=== PATIENT | female | born 1965 | race Caucasian/White ===

== ENCOUNTER 2023-10-10 20:38 | Emergency (ER) | payer BC, SELFPAY ==
[2023-10-10] VITALS (22 sets, daily range): BP systolic 113–156; BP diastolic 58–92; PULSE 62–82; RESP 20; TEMP 36.4; O2SAT 90–98; BMI 30.7
--- NOTE | 2023-10-10 20:41 | ED.GENADULT ---
HPI - General Adult General Date Seen: 10/10/23 Chief complaint: Chest Pain Stated complaint: Diff breathing, chest pain/tightness Time Seen by Provider: 10/10/23 20:41 History of Present Illness HPI narrative: This is a 58-year-old female with a history of hypothyroidism, Christine's disease, vitamin-D deficiency, esophagitis, GERD, history of GI bleeding, migraine headaches, anxiety/depression, history of epiglottitis treated in the hospital in 2019 at [facility] [place]. She presents to the ER today with her life partner for evaluation of chest pain. She has actually had symptoms dating back a couple of days where she just has not been feeling right. She has been having trouble concentrating. No other definite symptoms with that. No fever. No headache. No nausea or vomiting. No diarrhea. No trouble breathing. No chest pain. 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 She has been having trouble focusing at work. She denies any specific stress or new life problem. She and her partner are currently camping in a camper because they just wanted to get out of the city for a couple of weeks. That is not a source of stress for her She went for a walk this evening after she got off work because she just wanted to see if she could feel better. After getting home from the walk she was just very fatigued and had to go lay down. While she was laying down, beginning at roughly around 7 PN she began to have some substernal chest discomfort that is below her left breast. It feels like a pressure or squeezing. It does not really radiate although it may have gone up her left arm briefly. It is not ripping or tearing. It is not painful to breathe. She does feel like she is but short of breath. No abdominal pain. No nausea. No palpitations. No swelling in her legs. No recent travel. Past medical history includes hypothyroidism, currently on levothyroxine. She has a history of GERD and is currently on pantoprazole. She has a distant history of epiglottitis but this symptoms are not like that. She also recalls that she had a heart catheterization in 2012 done in the [facility] system. She does not remember what that catheterization showed but she did not have any stents and as far she can recall she did not have any significant coronary disease. She did have an allergic reaction to the heart catheterization dye. Related Data Allergies Allergy/AdvReac Type Severity Reaction Status Date / Time ibuprofen Allergy Unknown Verified 10/10/23 20:44 [facility] Social History Smoking Status: Never smoker How often do you have a drink containing alcohol: 2-4 times a month AUDIT-C Alcohol total score: 2 Non-prescribed substance use: denies use Exam Narrative: Exam Narrative: Constitutional: Appears well-developed and well-nourished. Alert. Conversant. Non toxic. HENT: Head: Atraumatic. Nose: Nose normal. Mouth/Throat: Oral mucosa is clear and moist. no trismus. Pharynx normal. Tonsils symmetric. No tonsillar enlargement, erythema, or exudate. Eyes: Conjunctivae normal. EOM normal. Pupils equal, round, and reactive to light. No scleral icterus. Neck: Normal range of motion. Neck supple. No tracheal deviation present. No JVD Cardiovascular: Normal rate, regular rhythm. No gallop. No friction rub. No murmur heard. Symmetric radial and PT artery pulses Pulmonary/Chest: Effort normal. No stridor. No respiratory distress. No wheezes. No rales. No rhonchi . No tenderness. Abdominal: Soft. Bowel sounds normal. No distension. No mass. No tenderness. No rebound. No guarding. No CVA tenderness Musculoskeletal: RUE: Normal range of motion. No tenderness. No deformity LUE: Normal range of motion. No tenderness. No deformity RLE: Normal range of motion. No edema. No tenderness. No deformity LLE: Normal range of motion. No edema. No tenderness. No deformity Lymph: No cervical adenopathy. Neurological: Alert and oriented to person, place, and time. Normal strength. CN II-VII intact. No sensory deficit. GCS eye subscore is 4. GCS verbal subscore is 5. GCS motor subscore is 6. Normal coordination Skin: Skin is warm and dry. No rash noted. No pallor. Normal capillary refill. Psychiatric: Normal mood. Appears somewhat anxious. Breathing deeply with long slow deep breaths.. Const: Vital Signs, click to edit/add: Vital Signs - 24 hr 10/10/23 20:44 10/10/23 21:03 10/10/23 21:04 Temperature 97.5 F L Pulse Rate 69 64 Pulse Rate [Right Pulse Oximeter] 75 Respiratory Rate 20 Blood Pressure 144/92 H Blood Pressure [Le ft Upper Arm] 156/69 H Pulse Oximetry 98 96 98 Oxygen Delivery Me thod Room Air 10/10/23 21:23 10/10/23 21:30 10/10/23 21:32 Temperature Pulse Rate 64 67 82 Pulse Rate [Right Pulse Oximeter] Respiratory Rate Blood Pressure 125/89 Blood Pressure [Le ft Upper Arm] Pulse Oximetry 96 95 94 Oxygen Delivery Me thod 10/10/23 21:45 10/10/23 22:00 10/10/23 22:02 Temperature Pulse Rate 70 75 69 Pulse Rate [Right Pulse Oximeter] Respiratory Rate Blood Pressure 113/58 L Blood Pressure [Le ft Upper Arm] Pulse Oximetry 97 96 97 Oxygen Delivery Me thod 10/10/23 22:15 10/10/23 22:30 10/10/23 22:31 Temperature Pulse Rate 77 78 72 Pulse Rate [Right Pulse Oximeter] Respiratory Rate Blood Pressure 141/78 H Blood Pressure [Le ft Upper Arm] Pulse Oximetry 94 96 96 Oxygen Delivery Me thod 10/10/23 22:32 10/10/23 22:33 10/10/23 22:45 Temperature Pulse Rate 62 71 74 Pulse Rate [Right Pulse Oximeter] Respiratory Rate Blood Pressure 125/84 122/80 Blood Pressure [Le ft Upper Arm] Pulse Oximetry 95 97 97 Oxygen Delivery Me thod 10/10/23 22:46 10/10/23 22:55 10/10/23 23:00 Temperature Pulse Rate 72 65 73 Pulse Rate [Right Pulse Oximeter] Respiratory Rate Blood Pressure 124/76 Blood Pressure [Le ft Upper Arm] Pulse Oximetry 97 95 94 Oxygen Delivery Me thod 10/10/23 23:02 10/10/23 23:15 10/10/23 23:30 Temperature Pulse Rate 72 70 71 Pulse Rate [Right Pulse Oximeter] Respiratory Rate Blood Pressure 116/73 Blood Pressure [Le ft Upper Arm] Pulse Oximetry 92 Oxygen Delivery Me thod 10/10/23 23:45 10/11/23 00:00 10/11/23 00:02 Temperature Pulse Rate 71 70 72 Pulse Rate [Right Pulse Oximeter] Respiratory Rate Blood Pressure 111/66 Blood Pressure [Le ft Upper Arm] Pulse Oximetry 90 90 92 Oxygen Delivery Me thod 10/11/23 00:02 10/11/23 00:02 10/11/23 00:15 Temperature Pulse Rate 72 72 70 Pulse Rate [Right Pulse Oximeter] Respiratory Rate Blood Pressure 111/66 111/66 Blood Pressure [Le ft Upper Arm] Pulse Oximetry 92 92 97 Oxygen Delivery Me thod 10/11/23 00:30 10/11/23 00:32 10/11/23 00:45 Temperature Pulse Rate 57 L 65 61 Pulse Rate [Right Pulse Oximeter] Respiratory Rate Blood Pressure 107/58 L Blood Pressure [Le ft Upper Arm] Pulse Oximetry 91 92 91 Oxygen Delivery Me thod 10/11/23 01:00 10/11/23 01:02 Temperature Pulse Rate 62 56 L Pulse Rate [Right Pulse Oximeter] Respiratory Rate Blood Pressure 117/72 Blood Pressure [Le ft Upper Arm] Pulse Oximetry 93 97 Oxygen Delivery Me thod Course Course ED Course: Recheck-temporary response to GI cocktail but chest pain came back. With concern for possible ischemia rather than esophageal spasm we did administer sublingual nitro. She had temporary relief of chest pain after sublingual nitro but then it recurred. We administered a total of 3 doses with only temporary partial relief. We then administered Ativan since there was some component of anxiety. With this, chest pain resolved. She was much more relaxed. Reevaluation(s) Reevaluation #1: Recheck-1:00 a.m.. Patient continues do well. No recurrent chest pain. More alert after Ativan wearing off. She in turn her family member are requesting discharge. I think that is reasonable. Vital Signs Vital signs: Initial Vital Signs Temperature 97.5 F L 10/10/23 20:44 Temperature Source Temporal Artery Scan 10/10/23 20:44 Pulse Rate 75 10/10/23 20:44 Pulse Rhythm Regular 10/10/23 20:44 Respiratory Rate 20 10/10/23 20:44 Blood Pressure 156/69 H 10/10/23 20:44 Blood Pressure Mean 98 10/10/23 20:44 Blood Pressure Position Sitting 10/10/23 20:44 Pulse Oximetry 98 10/10/23 20:44 Oxygen Delivery Method Room Air 10/10/23 20:44 Vital Signs Temperature 97.5 F L 10/10/23 20:44 Pulse Rate 75 10/10/23 20:44 Respiratory Rate 20 10/10/23 20:44 Blood Pressure 156/69 H 10/10/23 20:44 Pulse Oximetry 98 10/10/23 20:44 Oxygen Delivery Method Room Air 10/10/23 20:44 Temperature 97.5 F L 10/10/23 20:44 Pulse Rate 56 L 10/11/23 01:02 Respiratory Rate 20 10/10/23 20:44 Blood Pressure 117/72 10/11/23 01:02 Pulse Oximetry 97 10/11/23 01:02 Oxygen Delivery Method Room Air 10/10/23 20:44 Medications Administered Medications: Discontinued Medications Generic Name Dose Route Start Last Admin Trade Name Freq PRN Reason Stop Dose Admin Aspirin 162 mg 10/10/23 22:30 10/10/23 21:36 Aspirin 81 Mg Tab.Chew PO 10/10/23 22:31 162 mg ONCE ONE Administration Lidocaine/Aluminum/Magnesium/Simeth 30 ml 10/10/23 22:30 10/10/23 21:36 Gi Cocktail (Visc Lido/Antacid) 30 Ml PO 10/10/23 22:31 30 ml ONCE ONE Administration Lorazepam 1 mg 10/10/23 22:24 10/10/23 22:53 Lorazepam 2 Mg/Ml Inj IVP 10/10/23 22:25 1 mg ONCE ONE Administration Nitroglycerin 0.4 mg 10/10/23 22:24 10/10/23 22:53 Nitroglycerin 0.4 Mg Tab.Subl SUBLINGUAL 0.4 mg Q5M PRN Administration Medical Decision Making MDM Narrative Medical decision making narrative: This patient presents to the ER today for evaluation of chest pain that began this evening after supper while she was resting in bed, also with fatigue and just generally feeling unwell for the past couple of days.. Differential was broad. No evidence of palpitations, syncope or other cardiac dysrhythmia. She is having occasional PVCs on her heart monitor We considered possible ACS, however workup with EKG and serial troponin measurements is negative. HEART score is 3. With delta troponins being negative, I do not think the patient needs to be admitted for further sets of enzymes. EKG shows no evidence for pericarditis. Clinical presentation not suggestive of myocarditis. Chest x-ray shows no evidence for pneumonia, pneumothorax, pulmonary edema, pleural effusion, rib fracture, cardiomegaly. Mediastinum is normal on the x-ray. The patient has no ripping or tearing pain through to the back and has symmetric pulses on exam, no other acute neuro findings so I doubt aortic dissection. Risk of radiation and contrast exposure would outweigh the benefit of CT angiogram. We considered PE for this patient. Overall would be low risk but not 0 risk by PERC. Did obtain D-dimer. It is normal. At this point negative D-dimer makes likelihood of PE sufficiently low that risk of radiation or contrast would outweigh the benefit. No wheezing or bronchospasm to suggest COPD/asthma. No signs of chest wall cellulitis, shingles, injury. Differential would also include esophageal spasm. She does have a known history of esophagitis and has been on long-term pantoprazole. Differential would also include possible anxiety although she denies any specific stressors. With reasonable clinical confidence, I think the patient is safe for outpatient follow up. Discussed return precautions. Questions answered. Patient voices comfort with the plan. Lab Data Labs: Lab Results 10/10/23 10/10/23 Range/Units 21:13 23:30 WBC 4.98 (4.50-11.00) K/uL RBC 4.30 (4.00-5.20) m/uL Hgb 14.0 (12.0-16.0) gm/dL Hct 39.9 (33.0-51.0) % MCV 93 (80-100) fL MCH 33 (26-34) pg MCHC 35 (32-36) gm/dL RDW Coeff of Iron 13.0 (11.5-15.5) % Plt Count 181 (140-440) K/uL Neut % (Auto) 42.2 (42.0-72.0) % Lymph % (Auto) 46.4 H (20-44) % Trigg % (Auto) 9.4 (0.0-11.0) % Eos % (Auto) 1.6 (0.0-7.0) % Baso % (Auto) 0.2 (0.0-3.0) % Neut # (Auto) 2.10 (1.7-7.0) K/uL Lymph # (Auto) 2.30 (0.90-2.90) K/uL Trigg # (Auto) 0.50 (0.00-0.90) K/UL Eos # (Auto) 0.08 (0.00-0.50) K/uL Baso # (Auto) 0.01 (0.00-0.30) K/uL Abs Immat Gran (auto) 0.01 (0.00-0.30) K/uL Imm/Tot Granulo (auto) 0.2 % D-Dimer Quant (PE/DVT) < 0.27 (0.00-0.50) ug/ml Sodium 140 (135-149) mmol/L Potassium 3.5 L (3.6-5.1) mmol/L Chloride 106 (96-114) mmol/L Carbon Dioxide 28 (20-32) mmol/L Anion Gap 6 L (7-15) mEq/L BUN 19 (7-30) mg/dL Creatinine 0.9 (0.5-1.5) mg/dL Estimated Creat Clear 77.08 Estimated GFR 75 ml/min Glucose 90 (60-115) mg/dL Calcium 9.3 (8.4-10.6) mg/dL Troponin I < 0.01 L (0.01-0.04) ng/mL POC Troponin I 0.00 L (0.01-0.04) ng/ml ECG Data Attestation: I personally reviewed and interpreted this ECG as follows: Interpretation: Normal sinus rhythm is with premature ventricular complexes Rate: 72 OH: 152 QRS axis: Normal axis. No pathologic Q-waves. ST segment/T wave: No ST segment elevation or depression. QTc: She is 438 Discharge Plan Discharge Clinical Impression: Chest pain Patient Disposition: Home, Self-Care Condition: Stable Instructions: Chest Pain (DC) Additional Instructions: As we discussed, your workup here in the ER tonight looks reassuring. No sign of heart attack, pneumonia, collapsing lung, blood clot in your chest, or other life-threatening condition causing your chest pain. However it is important to keep an eye on your symptoms. If you have more episodes of chest discomfort or have other concerning symptoms such as dizzy spells, trouble breathing, swelling in her legs, or if you chest pain worsens or changes, come back to the ER right away to be rechecked. Please recheck with your doctor within the next 5-7 days. You may need some further workup to check for other conditions causing her chest pain, for instancee, endoscopy to check out your esophagus. Follow Up/Referrals: Provider,Not a Local [Primary Care Provider] - Stand Alone Forms: [facility] Info Inst[facility]
--- NOTE | 2023-10-10 21:06 | XR_ITS ---
Patient: LINDA PEREIRA Facility:?[facility] Patient ID:?[id number] Site Patient ID:?[id number] Site :?[id number] Study:?XRay-Chest 2V-10/10/2023 9:16:03 PM Ordering Physician:KAUSHAL Final Report: INDICATION: Chest tightness. TECHNIQUE: Chest 1 view. COMPARISON: None. FINDINGS: Cardiovascular and mediastinum: Heart size and vasculature are normal in caliber and appearance. Lungs and pleural spaces: Lungs are clear. No sign of infiltrate or mass. No sign of pleural effusion. No pneumothorax. Bones and soft tissues: Cholecystectomy clips. Otherwise, unremarkable for age. IMPRESSION: No evidence of an acute pulmonary process. Dictated by Franc Brizuela MD @ 10/10/2023 9:39:03 PM Signed by:?Franc Brizuela MD @10/10/2023 9:39:03 PM (Electronic Signature)
[2023-10-10 21:19] LABS: Basophils Absolute Auto 0.01 K/uL (0.00-0.30); Basophils Percent Auto 0.2 % (0.0-3.0); Eosinophils Absolute Auto 0.08 K/uL (0.00-0.50); Eosinophils Percent Auto 1.6 % (0.0-7.0); Hematocrit 39.9 % (33.0-51.0); Immature Granulocytes Abs Auto 0.01 K/uL (0.00-0.30); Immature Granulocytes Pct Auto 0.2 %; Lymphocytes Percent Auto 46.4 % (20-44); Mean Corpuscular HGB Conc 35 gm/dL (32-36); Mean Corpuscular Hemoglobin 33 pg (26-34); Mean Corpuscular Volume 93 fL (80-100); Monocytes Percent Auto 9.4 % (0.0-11.0); Neutrophils Percent Auto 42.2 % (42.0-72.0); Platelet Count* 181 K/uL (140-440); White Blood Count* 4.98 K/uL (4.50-11.00)
[2023-10-10 21:33] LABS: Chloride* 106 mmol/L (96-114); Potassium* 3.5 mmol/L (3.6-5.1); Sodium* 140 mmol/L (135-149)
[2023-10-10 21:36] LABS: Anion Gap 6 mEq/L (7-15); Blood Urea Nitrogen* 19 mg/dL (7-30); Calcium* 9.3 mg/dL (8.4-10.6); Carbon Dioxide* 28 mmol/L (20-32); Creatinine* 0.9 mg/dL (0.5-1.5); Est. Creatinine Clearance* 77.08; Estimated Glomerular Filt Rate 75 ml/min; Glucose* 90 mg/dL (60-115)
[2023-10-10] MEDS: ASPIRIN 81 MG TAB.CHEW 162 MG PO (21:36)
[2023-10-10] MEDS: GI COCKTAIL (VISC LIDO/ANTACID) 30 ML PO (21:36)
[2023-10-10 21:41] LABS: D Dimer Quantitative* < 0.27 ug/ml (0.00-0.50)
[2023-10-10] MEDS: NITROGLYCERIN 0.4 MG TAB.SUBL SUBLINGUAL ×3 (22:29→22:53)
[2023-10-10] MEDS: LORazepam 2 MG/ML inj 1 MG IVP (22:53)
[2023-10-10 23:34] LABS: Slide Review Reflex No
[2023-10-11] VITALS (8 sets, daily range): BP systolic 107–117; BP diastolic 58–72; PULSE 56–72; O2SAT 90–97
[2023-10-11 00:05] LABS: Troponin I* < 0.01 ng/mL (0.01-0.04)
== END 2023-10-11 01:23 | disposition home or self-care (01) ==
PROVIDERS: Emergency Provider Emergency Medicine
DX: R07.9 Chest pain, unspecified (principal)
CPT/HCPCS: 36415; 71046; 80048; 84484; 85025; 85379; 93005; 96374; 99284; A9270; J2060